=== PATIENT | male | born 1970 | race Caucasian/White ===

== ENCOUNTER 2019-11-28 14:01 | Observation (INO) ==
[2019-11-28] MEDS ORDERED: SODIUM CHLORIDE 0.9% 1000ML 2,000 ML IV ONE (14:17)
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
[2019-11-28 14:52] LABS: Basophils # (auto) 0.02 K/uL (0-0.2); Basophils % (auto) 0.3 %; Eosinophils # (auto) 0.06 K/uL (0-0.5); Eosinophils % (auto) 0.9 %; Hematocrit (blood only) 45.7 % (42-52); Immature Granulocytes # (auto) 0.05 K/uL (0.00-0.02); Immature Granulocytes % (auto) 0.7 %; Lymphocytes # (auto) 1.24 K/uL (1.2-3.4); Lymphocytes % (auto) 18.2 %; Mean Corpuscular Hemoglobin 30.4 pg (25-34); Mean Corpuscular Volume 86.9 fL (80-100); Mean Platelet Volume 11.8 fL (7.4-10.4); Monocytes # (auto) 0.67 K/uL (0.11-0.59); Monocytes % (auto) 9.8 %; Neutrophils # (auto) 4.79 K/uL (1.4-6.5); Neutrophils % (auto) 70.1 %; Platelet Count 217 K/uL (130-400); RDW Coefficient of Variation 13.3 % (11.5-14.5); RDW Standard Deviation 42.1 fL (36.4-46.3); Red Blood Count 5.26 M/uL (4.7-6.1); White Blood Count 6.83 K/uL (4.8-10.8)
[2019-11-28 15:01] LABS: Appearance Urine Clear (Clear); Bilirubin Urine Negative (Negative); Blood Urine Negative (Negative); Color Urine Yellow; Glucose Urine UA 3+ (Negative); Ketones Urine 1+ (Negative); Leukocyte Esterase Urine Negative (Negative); Nitrite Urine Negative (Negative); Protein Urine Negative (Negative); Specific Gravity Urine 1.039 (1.000-1.030); Urobilinogen Urine Negative (Negative); pH Urine 5.5 (4.5-7.5)
[2019-11-28 15:19] LABS: Albumin Globulin Ratio 0.9 (0.9-2); Albumin Level 3.5 gm/dl (3.4-5.0); BUN Creatinine Ratio 9.5 (10-20); Bilirubin,Total 0.7 mg/dl (0.2-1); Calcium 9.3 mg/dl (8.5-10.1); Creatinine Clr Calc Pharmacy 100.3 ml/min; Est GFR (African American) 92.2; Est GFR (Non-African American) 79.5; Globulin 4.1 gm/dl (2.5-4.0); Potassium 3.9 mmol/L (3.5-5.1); Total Protein 7.6 gm/dl (6.4-8.2)
[2019-11-28] MEDS ORDERED: NovoLIN-R INSULIN PER UNIT CHARGE IV STA (15:50)
[2019-11-28] MEDS ORDERED: INSULIN ASPART PER UNIT SC STA (15:50)
[2019-11-28] MEDS ORDERED: INSULIN PROTOCOL GOAL RANGE ONE (18:16)
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
[2019-11-28] MEDS ORDERED: GLUCOSE 40% GEL 15 GM TUBE PO PRN (18:30)
[2019-11-28] MEDS ORDERED: INSULIN REGULAR 250 UNITS in SODIUM CHLORIDE 0.9% 247.5 ML IV SCH (18:30)
[2019-11-28] MEDS ORDERED: INSULIN HUMAN REGULAR IV BOLUS 2.5 UNITS in SYRINGE 0 ML IV ONE (18:30)
[2019-11-28] MEDS ORDERED: DEXTROSE 50% 50 ML SYRINGE IV PRN (18:30)
[2019-11-28] MEDS ORDERED: GLUCOSE 10 TABS/TUBE PO PRN (18:30)
[2019-11-28] MEDS ORDERED: GLUCAGON FOR INJ 1 MG VIAL IM PRN (18:30)
[2019-11-28] MEDS ORDERED: CARBOHYDRATES FOR HYPOGLYCEMIA PO PRN (18:30)
[2019-11-28] MEDS ORDERED: PHARMACY GLYCEMIC MGMT CONSULT SCH (18:32)
[2019-11-28 20:49] LABS: BUN Creatinine Ratio 9.9 (10-20); Calcium 8.8 mg/dl (8.5-10.1); Creatinine Clr Calc Pharmacy 135.7 ml/min; Est GFR (Non-African American) 105.3; Potassium 3.2 mmol/L (3.5-5.1)
[2019-11-28] MEDS: INSULIN ASPART 100 UNITS/ML 3 ML PEN SC SCH (20:50)
[2019-11-28] MEDS: POTASSIUM CHLORIDE / WTR 10 MEQ/100 ML PLCT IV SCH (23:52)
[2019-11-28] MEDS: POTASSIUM CHLORIDE 40 MEQ in SODIUM CHLORIDE 0.45 % 1,000 ML IV SCH (23:52)
[2019-11-29] MEDS: POTASSIUM CHLORIDE / WTR 10 MEQ/100 ML PLCT IV SCH ×2 (01:36→02:32)
[2019-11-29 07:35] LABS: Estimated Average Glucose 392 mg/dl; Hemoglobin A1C 15.3 % (4.5-5.6)
[2019-11-29 08:00] LABS: BUN Creatinine Ratio 13.1 (10-20); Calcium 8.8 mg/dl (8.5-10.1); Creatinine Clr Calc Pharmacy 156.7 ml/min; Est GFR (African American) 129.5; Est GFR (Non-African American) 111.7; Potassium 3.6 mmol/L (3.5-5.1)
[2019-11-29] MEDS: INSULIN ASPART 100 UNITS/ML 3 ML PEN SC SCH ×5 (08:00→21:00)
[2019-11-29] MEDS ORDERED: INSULIN GLARGINE SOLOSTAR 100 UNITS/ML 3 ML PEN SC ONE ×2 (08:00→11:15)
--- NOTE | 2019-11-29 09:29 | Pharmacy Report ---
Glycemic Control Consultation - Date of Service November 29, 2019 - Scope Scope: Glycemic Pharmacist consulted for glycemic control and to write orders per [facility] inpatient glycemic control protocol. - Objective Weight: 99 kg Accneoecks BSG (last 24hrs): 11/28/19 11/28/19 11/28/19 14:26 14:40 16:04 Glucose 630 H* POC Glucose > 600 H* 464 H* 11/28/19 11/28/19 11/28/19 16:50 19:30 20:23 Glucose 214 H POC Glucose 395 H* 269 H 11/28/19 11/28/19 11/28/19 20:29 21:34 22:33 Glucose POC Glucose 270 H 245 H 227 H 11/28/19 11/29/19 11/29/19 23:24 00:54 02:09 Glucose POC Glucose 152 H 104 H 121 H 11/29/19 11/29/19 11/29/19 03:37 04:45 06:00 Glucose POC Glucose 120 H 116 H 110 H 11/29/19 11/29/19 11/29/19 06:45 07:11 07:52 Glucose 108 H POC Glucose 101 H 132 H Laboratory Data (last 24hrs): 11/28/19 11/28/19 11/29/19 14:40 20:23 06:45 Potassium 3.9 3.2 L D 3.6 Carbon Dioxide 22 28 25 Anion Gap 8.0 2.0 L 4.0 Creatinine 1.10 0.82 0.71 Est Cr Clr Drug Dosing 100.3 135.7 156.7 Beta-Hydroxybutyric Acd HbA1c: Hemoglobin A1c 15.3 % (4.5-5.6) H 11/29/19 06:42 - Recent Pertinent Medications Outpatient Anti-diabetic Regimen: * n/a - patient has not seen a doctor in years * A1c = 15.3 % 11/29/19 The patient is currently receiving: * An insulin drip ranging from 2.3 - 2.8 units/hr Risk Factors for Insulin Resistance: * Diet: T2DM * Baseline poor glycemic control - Assessment & Plan Assessment & Plan: ASSESSMENT: * 49 y/o male admitted last evening after being sent by urgent care for high BSGs. He has not seen his PCP for years and last A1c he believes shows he was pre-diabetic. Current A1c is significantly uncontrolled. Patient will re quire insulin on discharge. * On admission, patient with elevated BSGs but not in DKA or HHS. BSGs have dropped overnight and insulin drip rates were consistently ~2.3 to 2.8 units/hr since 0200. This is likely his basal requirement. Can plan for transition to SQ at this time. PLAN FOR INPATIENT GLYCEMIC CONTROL: * Transition from IV to SQ insulin * D/c insulin drip 6 hours after 1st dose of basal. Discontinue sooner if directed by insulin drip calculator. * Basal insulin * Lantus 25 units x 1 this AM, additional 25 units late morning for increasing BSGs, then * Lantus BID starting 11/29 as per the following scale: * 17 units for BSG < 140 * 25 units for BSG 140 or above * Bolus insulin * NovoLog per scale ACHS + 00,04 overnight checks tonight in case more i nsulin is needed in transition to SQ * Goal Range: Low 120 mg/dL - High 160 mg/dL (higher goal range due to baseline insulin resistance) * Correction Factor: 15 mg/dL/unit * Nutritional / Prandial insulin per carb ratio of 1 unit per 6 grams CHO consumed * Please note that the plan above was derived based on current level of insulin resistance and hospital stress. These recommendations are appropriate for inpatient admission only. Plan of care upon discharge will need to be reassessed to avoid potential outpatient hypo/hyperglycemia. Thank you.
[2019-11-29] MEDS ORDERED: DC IV INSULIN INFUSION 1 EA DEVI ONE (14:00)
[2019-11-29] MEDS: POTASSIUM CHLORIDE 40 MEQ in SODIUM CHLORIDE 0.45 % 1,000 ML IV SCH (14:05)
[2019-11-29] MEDS: ENOXAPARIN INJ 40 MG/0.4 ML SYR SQ SCH (19:00)
--- NOTE | 2019-11-29 22:35 | Hospitalist Progress Note ---
Date of Service November 29, 2019 Assessment & Plan (1) New onset type 2 diabetes mellitus: Patient is now admitted to [facility]. No metabolic acidosis. A1C is 15. Will need to transition IV insulin to SUBQ and monitor.. continuing to replenish potassium obtained consult with visual educator. dvt: short hospital stay. (2) Polyuria: (3) Polydipsia: (4) Hyperglycemia: (5) Hypokalemia: replacing potassium IV. Admission and Anticipated Discharge Date Admission Date: November 29, 2019 Subjective 49 yo male reports feeling well. He has no new complaints. Review of Systems Review of Systems: All systems reviewed & are unremarkable except as noted in HPI & below Physical Exam Constitutional: WD/WN, vitals as above well developed and well nourished Eyes: PERRL, conjunctivae normal, anicteric sclerae ENMT: external ear and nose normal, oropharynx normal Neck: trachea midline, no thyromegaly Respiratory: normal respiratory effort; no respiratory distress and does not use accessory muscles Auscultation: + rhonchi Cardiovascular: RRR, no murmur, no edema Gastrointestinal (Abdomen): normal bowel sounds, soft, nontender, no hepatosplenomegaly Musculoskeletal: no cyanosis or clubbing, extremities motor strength 5/5 Skin: no rashes, warm and dry Neurologic: PERRL, EOMI, accommodation nl, no face palsy, no dysarthria Psychiatric: A+Ox3, euthymic affect Results & Data Results & Data ([facility]) Vital Signs (Past 12 Hours) Vital Signs Temp Pulse Resp BP Pulse Ox 11/29/19 16:12 36.7 C 74 16 105/70 97 PG Care Time/CCT Total # of Minutes Spent Total Time Spent with Patient: Total time spent is greater than 50% in coordination of care (as documented) at patient's floor/unit and/or counseling patient: Coding Level of Care Code 98374 Subseq Hosp Care Lvl 2 Diagnoses New onset type 2 diabetes mellitus E11.9 Polyuria R35.8 Polydipsia R63.1 Hyperglycemia R73.9 Hypokalemia E87.6 Time Spent (min) 28
[2019-11-30] MEDS: INSULIN ASPART 100 UNITS/ML 3 ML PEN SC SCH ×4 (00:04→12:23)
[2019-11-30] MEDS: POTASSIUM CHLORIDE 40 MEQ in SODIUM CHLORIDE 0.45 % 1,000 ML IV SCH (02:25)
[2019-11-30] MEDS: ENOXAPARIN INJ 40 MG/0.4 ML SYR SQ SCH (07:24)
[2019-11-30] MEDS ORDERED: INSULIN GLARGINE SOLOSTAR 100 UNITS/ML 3 ML PEN SC SCH (09:00)
--- NOTE | 2019-11-30 10:09 | Pharmacy Report ---
Pharmacy Glycemic Short Note 2 - Date of Service November 30, 2019 - Glycemic Short BSG Results (Last 24 hours): 11/29/19 11/29/19 11/29/19 11:04 11:58 12:51 POC Glucose 345 H* 302 H* 361 H* 11/29/19 11/29/19 11/29/19 12:53 14:04 14:52 POC Glucose 349 H* 229 H 204 H 11/29/19 11/29/19 11/29/19 15:46 16:46 20:03 POC Glucose 187 H 98 131 H 11/30/19 11/30/19 11/30/19 00:00 04:07 07:31 POC Glucose 111 H 127 H 161 H OUTPATIENT ANTIDIABETIC REGIMEN: * Newly diagnosed T2DM * A1c 15.3% on 11/29/19 ASSESSMENT: 11/29: * Patient transitioned off insulin drip yesterday afternoon. Received at total of 50 units of Basal to assist with transition. * Following transition, patient's BSG dropped to 98 mg/dL at dinner time. Ranging 111-127 mg/dL overnight. * Fasting BSG this AM was 161 mg/dL * Given sharp decrease in BSG yesterday and patient being insulin-naive, will loosen CF and CR today. * No adjustment needed for Basal insulin at this time. 11/28: * 49 y/o male admitted last evening after being sent by urgent care for high BSGs. He has not seen his PCP for years and last A1c he believes shows he was pre-diabetic. Current A1c is significantly uncontrolled. Patient will require insulin on discharge. * On admission, patient with elevated BSGs but not in DKA or HHS. BSGs have dropped overnight and insulin drip rates were consistently ~2.3 to 2.8 units/hr since 0200. This is likely his basal requirement. Can plan for transition to SQ at this time. PLAN FOR INPATIENT GLYCEMIC CONTROL: * Basal insulin * Lantus 17 units SQ BID (BSG less than 140) * Lantus 25 units SQ BID (BSG 140 or above) * Bolus insulin * NovoLog per scale ACHS or Q6hrs while NPO * Goal Range: Low 120 mg/dL - High 160 mg/dL * Correction Factor: 20 mg/dL/unit * Nutritional / Prandial insulin per carb ratio of 1 unit per 7 grams CHO consumed PLAN FOR DISCHARGE: * Patient will require insulin upon discharge. Consider Lantus/Basaglar 40 units SQ HS + Humalog/Novolog 10 units TIDAC plus sliding scale + Metformin 500 mg PO BIDM (or can consider XR formulation once daily if n/v/d)
[2019-11-30 12:00] LABS: BUN Creatinine Ratio 12.5 (10-20); Calcium 8.7 mg/dl (8.5-10.1); Creatinine Clr Calc Pharmacy 132.5 ml/min; Est GFR (African American) 120.8; Est GFR (Non-African American) 104.3; Potassium 4.2 mmol/L (3.5-5.1)
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
== END 2019-11-30 14:15 | disposition home or self-care (01) ==
LOC: 2N 14:01 → ED 14:01 → 2N 18:48
DX: E11.65 Type 2 diabetes mellitus with hyperglycemia; F17.210 Nicotine dependence, cigarettes, uncomplicated; Z88.0 Allergy status to penicillin